=== PATIENT | female | born 1960 | race Caucasian/White ===

== ENCOUNTER 2016-08-31 07:26 | Emergency (ER) | payer OTHER ==
[2016-08-31 07:35] VITALS: BP 126/91
[2016-08-31] MEDS ORDERED: Lidocaine 2% 10 ML* VIAL INJ ONE (07:42)
[2016-08-31] MEDS ORDERED: Lidocaine 2% PF * 5 ML VIAL INJ ONE (08:06)
--- NOTE | 2016-08-31 08:06 | UC ---
Skin Complaint HPI - HPI Summary HPI Summary: wood sliver in left pinky under the nail x 1 day very painful - History of Current Complaint Chief Complaint: UCUpperExtremity Time Seen by Provider: 08/31/16 07:29 Stated Complaint: SLIVER RIGHT PINKY Hx Obtained From: Patient Onset/Duration: Sudden Onset, Lasting Days - 1, Still Present Timing: Constant Onset Severity: Moderate Current Severity: Moderate Location: Hand (Left) - left 5th finger , under the nail Character: Pain, Redness, Painful Aggravating: Touch Alleviating: Nothing Associated Signs & Symptoms: Positive: Tenderness - Allergy/Home Medications Allergies/Adverse Reactions: Allergies Allergy/AdvReac Type Severity Reaction Status Date / Time Sulfa Antibiotics Allergy Intermediate Hives Verified 08/31/16 07:35 Codeine Allergy Hives Verified 08/31/16 07:35 Home Medications: Home Medications NK [No Home Medications Reported] 08/31/16 [History Confirmed 08/31/16] Review of Systems Constitutional: Negative Skin: Negative Eyes: Negative ENT: Negative Respiratory: Negative All Other Systems Reviewed And Are Negative: Yes PMH/Surg Hx/FS Hx/Imm Hx Previously Healthy: Yes Cancer History Of: Denies: Breast Cancer - Surgical History Surgical History: Yes Surgery Procedure, Year, and Place: tubal, , R great toe joint replacement - Family History Known Family History: Positive: None Negative: Diabetes - Social History Alcohol Use: Rare Substance Use Type: None Smoking Status (MU): Former Smoker Type: Cigarettes Amount Used/How Often: 1/2 ppd Length of Time of Smoking/Using Tobacco: 05/2016 Have You Smoked in the Last Year: Yes Physical Exam Triage Information Reviewed: Yes Appearance: Well-Appearing, No Pain Distress, Well-Nourished Vital Signs: Initial Vital Signs Temp 97.5 F 08/31/16 07:29 Pulse 72 08/31/16 07:29 Resp 16 08/31/16 07:29 BP 126/91 08/31/16 07:29 Pulse Ox 99 08/31/16 07:29 Vital Signs Reviewed: Yes Eye Exam: Normal Eyes: Positive: Conjunctiva Clear ENT: Positive: Normal ENT inspection, Hearing grossly normal, Pharynx normal Neck exam: Normal Respiratory: Positive: Chest non-tender, Lungs clear, Normal breath sounds Cardiovascular: Positive: RRR, No Murmur, Pulses Normal Skin: Positive: Other - sliver under the nail of left pinky UC Physical Exam Vital Signs On Initial Exam: Initial Vitals Temp Pulse Resp BP Pulse Ox 97.5 F 72 16 126/91 99 08/31/16 07:29 08/31/16 07:29 08/31/16 07:29 08/31/16 07:29 08/31/16 07:29 Course/Dx - Diagnoses Provider Diagnoses: foreign body removal soft tissue Procedures - Procedure Summary Procedure Summary: foreign body / sliver removal under the left 5th finger nail anesthesia : 2 cc 2% lidocaine using 25 g needle sliver was removed using a splinter removal forceps Discharge - Discharge Plan Condition: Stable Disposition: HOME Patient Education Materials: Soft Tissue Foreign Body (ED) Additional Instructions: follow up if any sign of infection , having pain, redness, discharge
== END 2016-08-31 08:18 | disposition home or self-care (01) ==
LOC: UCCORT 07:26
DX: S60.457A Superficial foreign body of left little finger, initial encounter (principal); X58.XXXA Exposure to other specified factors, initial encounter; Y93.9 Activity, unspecified; Y92.9 Unspecified place or not applicable; Z88.5 Allergy status to narcotic agent; Z88.2 Allergy status to sulfonamides; Z87.891 Personal history of nicotine dependence
CPT/HCPCS: 99211; G0463; J2001

== ENCOUNTER 2018-01-30 07:27 | Emergency (ER) | payer BC, OTHER ==
--- OUTSIDE RECORDS SUMMARY | 2018-01-30 07:38 | XMS REPORT ---
:1960 External Reference #:[id number] Author Organization [facility] Address [address], [address] [place] [address] Phone [phone] Care Team Providers Name Role Phone Vinita Lomeli MD Care Team Information Adult Health Clinical Nurse Specialist Unavailable Vinita Lomeli MD Primary Care Physician Unavailable Payers Type Date Identification Numbers Payment Provider Subscriber Workers Compensation Onset: Policy Number: [facility] Insurance Leida Mendenhall 2017 [id number] Fund Group Number: [id number] [address] [address] Group Name: [place] [address] PayID: [id number] [facility] Policy Number: [id number] [facility] Leida Mendenhall PayID: [id number] [address] [place] [address] Problems Date Description Provider Status Onset: 07/15/2017 Closed fracture of ankle Tiffany Herrmann MD Active Onset: 07/15/2017 Current tear of lateral cartilage AND/OR Tiffany Herrmann MD Active meniscus of knee Onset: 07/15/2017 Activity, walking, marching and hiking Tiffany Herrmann MD Active Onset: 07/15/2017 Industrial trauma Tiffany Herrmann MD Active Onset: 07/15/2017 Other external cause status Tiffany Herrmann MD Active Onset: 07/22/2017 Unspecified dislocation of left patella, Tiffany Herrmann MD Active subs encntr Onset: 07/22/2017 Tear of articular cartilage of right Tiffany Herrmann MD Active knee, current, subs Onset: 07/22/2017 Unsp fx shaft of l fibula, 7thE Tiffany Herrmann MD Active Onset: 08/24/2017 Lateral dislocation of left patella, Mervat Flynn PA Active subsequent encounter Family History Date Family Member(s) Problem(s) Comments Father due to Heart Disease () Father due to Cancer () Social History Type Date Description Comments Lives With Alone Occupation [employer] 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 Cigarette Use Quit Cigars Never Smoked Cigars Pipe Never Smoked A Pipe Smokeless Tobacco Never Used Smokeless Tobacco ETOH Use Denies alcohol use Recreational Drug Use Denies Drug Use Daily Caffeine Current Caffeine User Daily Allergies, Adverse Reactions, Alerts Date Description Reaction Status Severity Comments 07/15/2017 Codeine Urticaria active 07/15/2017 Sulfa Antibiotics Urticaria active 07/15/2017 Shellfish-Derived Products active Medications Medication Date Status Form Strength Qnty SIG Indications Ordering Provider No Active Unknown Medications 2017 Flonase / Hx Suspension 50mcg/Act 1 spray Unknown Allergy Relief 0000 - each nare 2017 Tylenol 8 Hour / Hx Tablets ER 650mg one by Unknown 0000 - mouth 09/07/ 2017 hours as needed pain Ibuprofen / Hx Tablets 600mg 90tabs 1 tab by Unknown 0000 - mouth 2017 hours as needed Oxycodone-Acet / Hx Tablets 5-325mg take 1-2 Unknown aminophen 0000 - tablets 07/22/ by mouth 2017 every 4 to 6 hours if needed for pain maximu Vital Signs Date Vital Result Comment 01/11/2018 BP Systolic 120 mmHg BP Diastolic 87 mmHg Body Temperature 97.0 F Heart Rate 66 /min Height 67 inches 5'7" Weight 180.00 lb BMI (Body Mass Index) 28.2 kg/m2 BSA (Body Surface Area) 1.93 m2 [place] body weight in kilograms 61 O2 % BldC Oximetry 97 % Pain Level 0 11/23/2017 BP Systolic Sitting Right Arm 109 mmHg BP Diastolic Sitting Right Arm 75 mmHg Body Temperature 97.9 F Heart Rate 79 /min Respiratory Rate 16 /min Height 67 inches 5'7" Weight 177.00 lb BMI (Body Mass Index) 27.7 kg/m2 BSA (Body Surface Area) 1.92 m2 Stroud body weight in kilograms 61 O2 % BldC Oximetry 97 % 09/07/2017 BP Systolic 132 mmHg BP Diastolic 79 mmHg Body Temperature 97.8 F Heart Rate 76 /min Respiratory Rate 16 /min Height 67 inches 5'7" Weight 168.00 lb BMI (Body Mass Index) 26.3 kg/m2 BSA (Body Surface Area) 1.88 m2 Stroud body weight in kilograms 61 Pain Level 6 08/24/2017 BP Systolic Sitting Right Arm 111 mmHg BP Diastolic Sitting Right Arm 80 mmHg Body Temperature 98.7 F Heart Rate 88 /min Respiratory Rate 16 /min Height 67 inches 5'7" Weight 171.00 lb BMI (Body Mass Index) 26.8 kg/m2 BSA (Body Surface Area) 1.89 m2 [place] body weight in kilograms 61 08/03/2017 BP Systolic 145 mmHg BP Diastolic 91 mmHg Body Temperature 97.9 F Heart Rate 103 /min Respiratory Rate 17 /min Height 67 inches 5'7" Weight 170.00 lb BMI (Body Mass Index) 26.6 kg/m2 BSA (Body Surface Area) 1.89 m2 Stroud body weight in kilograms 61 Pain Level 0 07/22/2017 BP Systolic Sitting Left Arm 107 mmHg BP Diastolic Sitting Left Arm 78 mmHg Heart Rate 76 /min Respiratory Rate 16 /min Height 67 inches 5'7" Weight 172.12 lb BMI (Body Mass Index) 27.0 kg/m2 BSA (Body Surface Area) 1.90 m2 Stroud body weight in kilograms 61 O2 % BldC Oximetry 95 % Ra Pain Level 0 at rest 07/15/2017 BP Systolic Sitting Left Arm 109 mmHg BP Diastolic Sitting Left Arm 72 mmHg Body Temperature 98.7 F Heart Rate 69 /min Respiratory Rate 16 /min Height 67 inches 5'7" Weight 175.50 lb BMI (Body Mass Index) 27.5 kg/m2 BSA (Body Surface Area) 1.91 m2 Stroud body weight in kilograms 61 O2 % BldC Oximetry 97 % Ra Pain Level 6 Results Description No Information Procedures Date CPT Code Description Status 11/23/2017 13711 Radiology, Ankle Complete Completed 10/12/2017 38108 Radiology, Ankle Complete Completed 09/07/2017 86561 Radiology, Ankle Complete Completed 08/24/2017 77827 Radiology, Ankle Complete Completed 08/03/2017 72805 Radiology, Ankle Complete Completed 07/22/2017 75787 Radiology, Ankle Complete Completed 07/15/2017 96990 Fx distal tibia (ankle) w/wo ansth wskeletal Completed traction/manipulatio 07/15/2017 86054 Fx distal tibia (ankle) w/wo ansth wskeletal Completed traction/manipulatio 12/14/2007 08885 Radiology, Wrist Two Views Completed Encounters Type Date Location Provider CPT E/M Dx Office Visit 11/23/2017 10:30a [place] [address] S83.32xD S82.402E X58.xxxD Office Visit 10/12/2017 10:00a [place] [address] S83.31xD S82.402E X58.xxxD Office Visit 07/15/2017 3:00p [place] [address] S82.892A S83.204A W00.0xxA Y93.01 Y92.69 Y99.8 Office Visit 12/14/2007 11:15a Aden Vinson 36732 715.94 He Carl.O. H., DO 213.5 Plan of Care Future Appointment(s):02/24/2018 9:30 am - Tiffany Herrmann MD at [id number]/11/2018 - Tiffany Herrmann, MDS83.32xD Tear of articular cartilage of left knee, current, subsS82.402E Unsp fx shaft of l fibula, 9tpOD01.015D Lateral dislocation of left patella, subsequent encounterNew Therapy:Physical/ Occupational TherapyNew Therapy:Physical/Occupational TherapyReferral:Chente Lowery M.D., Surgery,Orthopedic
[2018-01-30 07:44] VITALS: BP 128/89
--- NOTE | 2018-01-30 08:31 | UC ---
Lower Extremity/Ankle HPI - HPI Summary HPI Summary: pt noted an ache behind her L knee 2 days ago. now the L calf feels painful and swollen. no acute injury, cp or sob. - History of Current Complaint Chief Complaint: UCLowerExtremity Stated Complaint: LEFT LEG PAIN Time Seen by Provider: 01/30/18 08:19 Hx Obtained From: Patient Onset/Duration: Gradual Onset Pain Intensity: 2 Aggravating Factor(s): Nothing Alleviating Factor(s): Nothing Able to Bear Weight: Yes - Risk Factors Gout Risk Factors: Negative Septic Arthritis Risk Factor: Negative - Allergies/Home Medications Allergies/Adverse Reactions: Allergies Allergy/AdvReac Type Severity Reaction Status Date / Time codeine Allergy Hives Verified 01/30/18 07:40 Sulfa (Sulfonamide Allergy Hives Verified 01/30/18 07:40 Antibiotics) PMH/Surg Hx/FS Hx/Imm Hx - Additional Past Medical History Additional PMH: Fx LLE(knee/ankle injuries) 6 months ago - Surgical History Surgical History: Yes Surgery Procedure, Year, and Place: tubal, , R great toe joint replacement - Family History Known Family History: Positive: None Negative: Diabetes - Social History Occupation: Employed Full-time Alcohol Use: Rare Substance Use Type: None Smoking Status (MU): Former Smoker Type: Cigarettes Amount Used/How Often: 1/2 ppd Length of Time of Smoking/Using Tobacco: 05/2016 Have You Smoked in the Last Year: Yes When Did the Patient Quit Smoking/Using Tobacco: 05/2016 - Immunization History Vaccination Up to Date: Yes Review of Systems Constitutional: Negative Skin: Negative Eyes: Negative ENT: Negative Respiratory: Negative Cardiovascular: Negative Gastrointestinal: Negative Genitourinary: Negative Motor: Negative Neurovascular: Negative Musculoskeletal: Calf Tenderness Neurological: Negative Psychological: Negative Is Patient Immunocompromised?: No All Other Systems Reviewed And Are Negative: Yes Physical Exam Triage Information Reviewed: Yes Appearance: Well-Appearing Vital Signs: Initial Vital Signs Temp 98.4 F 01/30/18 07:40 Pulse 69 01/30/18 07:40 Resp 15 01/30/18 07:40 BP 128/89 01/30/18 07:40 Pulse Ox 99 01/30/18 07:40 Vital Signs Reviewed: Yes Eyes: Positive: Conjunctiva Clear ENT: Positive: Normal ENT inspection Neck: Positive: Supple, Nontender, No Lymphadenopathy Respiratory: Positive: Lungs clear, Normal breath sounds Cardiovascular: Positive: RRR, No Murmur Abdomen Description: Positive: Nontender, No Organomegaly, Soft Bowel Sounds: Positive: Present Musculoskeletal: Positive: ROM Intact, Other: - LLE compared to R has subtle swelling plus popliteal fosa and calf are tender to palaption. LLE has full s/v/ m function. Neurological: Positive: Alert Psychological: Positive: Age Appropriate Behavior Skin Exam: Normal Diagnostics - Radiology No standard instances Radiology Interpretation Completed By: Radiologist - IMPRESSION: US LLE=1. NO LEFT LOWER EXTREMITY DEEP VEIN THROMBOSIS 2. PALACIOS'S CYST Lower Extremity Course/Dx - Course Course Of Treatment: NO CONCERN FOR INFECTION. NO DVT. +BAKERS CYST ON US - Differential Dx/Diagnosis Differential Diagnosis/HQI/PQRI: DVT, Phlebitis, Sprain, Strain Provider Diagnoses: PALACIOS CYST L KNEE Discharge - Sign-Out/Discharge Documenting (check all that apply): Patient Departure All imaging exams completed and their final reports reviewed: Yes - Discharge Plan Condition: Stable Disposition: HOME Patient Education Materials: Bakers Cyst (ED) Additional Instructions: FOLLOW UP WITH DR LUO, YOUR ORTHOPEDIST AT [facility] SOON POSSIBLE. USE YOUR CRUTCHES NEEDED FOR COMFORT - Billing Disposition and Condition Condition: STABLE Disposition: Home
--- NOTE | 2018-01-30 08:56 | RAD ---
HISTORY: pain/swelling LLE COMPARISONS: None relevant TECHNIQUE: Multiple transverse and longitudinal ultrasound images were obtained of the left lower extremity from the level of the common femoral vein inferiorly through to the infrapopliteal veins using grayscale, color Doppler, and spectral Doppler imaging with and without compression and with augmentation. Comparison images were obtained of the contralateral common femoral vein. FINDINGS: VEINS: The venous system of the left lower extremity is compressible throughout its course, with normal flow on color Doppler imaging and normal response to augmentation on spectral Doppler imaging. SOFT TISSUES: Unremarkable. OTHER FINDINGS: There is a 2.2 x 0.6 x 1.8 cm fluid collection of the popliteal fossa. IMPRESSION: 1. NO LEFT LOWER EXTREMITY DEEP VEIN THROMBOSIS 2. PALACIOS'S CYST
== END 2018-01-30 09:22 | disposition home or self-care (01) ==
LOC: UCCORT 07:27
DX: Z88.5 Allergy status to narcotic agent (principal); Z88.1 Allergy status to other antibiotic agents; M71.22 Synovial cyst of popliteal space [Baker], left knee
CPT/HCPCS: 99211; G0463

== ENCOUNTER 2018-07-27 11:18 | Emergency (ER) | payer BC ==
[2018-07-27 12:04] VITALS: BP 126/77
--- NOTE | 2018-07-27 12:17 | ED ---
Throat Pain/Nasal Congestion - HPI Summary HPI Summary: 57 yr old with 4-5 days of nasal congestion, sore throat, cough, and now right ear pain. She rates the pain as moderate. No change in swallowing. She has had some hoarseness. No fever. - History of Current Complaint Chief Complaint: UCEar Time Seen by Provider: 07/27/18 12:08 - Allergies/Home Medications Allergies/Adverse Reactions: Allergies Allergy/AdvReac Type Severity Reaction Status Date / Time codeine Allergy Hives Verified 07/27/18 12:00 Sulfa (Sulfonamide Allergy Hives Verified 07/27/18 12:00 Antibiotics) Home Medications: Home Medications Dm/P-Ephed/Acetaminoph/Doxylam [Cora-Goodell Plus Cold+Flu Pkt] 1 each PO Q4H PRN 07/27/18 [History Confirmed 07/27/18] PMH/Surg Hx/FS Hx/Imm Hx - Surgical History Surgery Procedure, Year, and Place: tubal, , R great toe joint replacement Infectious Disease History: No Infectious Disease History: Denies: Traveled Outside the [place] in Last 30 Days - Family History Known Family History: Positive: None Negative: Diabetes - Social History Alcohol Use: None Substance Use Type: Reports: None Smoking Status (MU): Former Smoker Type: Cigarettes Amount Used/How Often: 1/2 ppd Length of Time of Smoking/Using Tobacco: ~1/3 PPD x 30 Years Have You Smoked in the Last Year: Yes Review of Systems Positive: Fatigue Positive: Sore Throat, Ear Ache, Nasal Discharge All Other Systems Reviewed And Are Negative: Yes Physical Exam Triage Information Reviewed: Yes Vital Signs On Initial Exam: Initial Vitals Temp Pulse Resp BP Pulse Ox 98 F 76 16 126/77 99 07/27/18 11:58 07/27/18 11:58 07/27/18 11:58 07/27/18 11:58 07/27/18 11:58 Vital Signs Reviewed: Yes Appearance: Positive: Well-Appearing, No Pain Distress Skin: Positive: Warm, Skin Color Reflects Adequate Perfusion Head/Face: Positive: Normal Head/Face Inspection Eyes: Positive: EOMI ENT: Positive: Pharyngeal erythema, Nasal congestion, TM red - right TM with redness and effusion, Hoarse voice, Sinus tenderness. Negative: Muffled voice Neck: Positive: Nontender Respiratory/Lung Sounds: Positive: Clear to Auscultation, Breath Sounds Present Cardiovascular: Positive: RRR. Negative: Murmur Abdomen Description: Positive: Nontender Musculoskeletal: Positive: Strength/ROM Intact Neurological: Positive: Sensory/Motor Intact, Alert, Oriented to Person Place, Time, CN Intact II-III Psychiatric: Positive: Normal Diagnostics - Vital Signs Vital Signs Temp Pulse Resp BP Pulse Ox 07/27/18 11:58 98 F 76 16 126/77 99 - Laboratory Lab Statement: Any lab studies that have been ordered have been reviewed, and results considered in the medical decision making process. EENT Course/Dx - Course Course Of Treatment: 57 yr old with OM. Rx Biaxin - Diagnoses Provider Diagnoses: Otitis media Discharge - Sign-Out/Discharge Documenting (check all that apply): Patient Departure All imaging exams completed and their final reports reviewed: No Studies - Discharge Plan Condition: Good Disposition: HOME Prescriptions: Clarithromycin TAB* [Biaxin 500 MG TAB*] 500 mg PO BID #20 tab Patient Education Materials: Ear Infection (ED) Referrals: No Primary Care Phys,NOPCP [Primary Care Provider] - [facility] [place]] - 2 Days - Billing Disposition and Condition Condition: GOOD Disposition: Home
== END 2018-07-27 12:20 | disposition home or self-care (01) ==
LOC: UCCORT 11:18
DX: H66.91 Otitis media, unspecified, right ear (principal); R05 Cough; R09.89 Other specified symptoms and signs involving the circulatory and respiratory systems; J02.9 Acute pharyngitis, unspecified; Z87.891 Personal history of nicotine dependence; Z88.2 Allergy status to sulfonamides; Z88.5 Allergy status to narcotic agent
CPT/HCPCS: 99212; G0463

== ENCOUNTER 2019-04-10 08:43 | Emergency (ER) | payer BC ==
[2019-04-10 09:25] VITALS: BP 140/74
--- NOTE | 2019-04-10 09:37 | UC ---
Complaint Female HPI - HPI Summary HPI Summary: dysuria x 1 day urinary frequency , urgency lower back pain , hematuria denies any fever, no chills, no flank pain - History Of Current Complaint Chief Complaint: UCGU Stated Complaint: URINARY Time Seen by Provider: 04/10/19 09:15 Hx Obtained From: Patient ?: No Onset/Duration: Gradual Onset, Lasting Days - 1, Still Present Timing: Constant Severity Initially: Moderate Severity Currently: Moderate Pain Intensity: 7 Character: Burning Aggravating Factor(s): Urination Alleviating Factor(s): Nothing Associated Signs And Symptoms: Negative: Fever, Back Pain, Vaginal Bleeding/ Discharge, Vaginal Discharge, Nausea, Vomiting(# Of Episodes =), Genital Swelling, Genital Blisters, Retained Foregin Body (Specify) - Allergies/Home Medications Allergies/Adverse Reactions: Allergies Allergy/AdvReac Type Severity Reaction Status Date / Time codeine Allergy Hives Verified 04/10/19 09:12 Sulfa (Sulfonamide Allergy Hives Verified 04/10/19 09:12 Antibiotics) Home Medications: Home Medications Phenazopyridine TAB* [Pyridium 100 mg TAB*] 100 mg PO TID PRN 04/10/19 [History Confirmed 04/10/19] PMH/Surg Hx/FS Hx/Imm Hx Previously Healthy: Yes - Surgical History Surgical History: Yes Surgery Procedure, Year, and Place: tubal, , R great toe joint replacement - Family History Known Family History: Positive: None Negative: Diabetes - Social History Alcohol Use: Occasionally Substance Use Type: None Smoking Status (MU): Former Smoker Type: Cigarettes Amount Used/How Often: 1/2 ppd Length of Time of Smoking/Using Tobacco: ~1/3 PPD x 30 Years Have You Smoked in the Last Year: Yes When Did the Patient Quit Smoking/Using Tobacco: 2014 - Immunization History Vaccination Up to Date: Yes Review of Systems All Other Systems Reviewed And Are Negative: Yes Constitutional: Positive: Negative Skin: Positive: Negative Eyes: Positive: Negative ENT: Positive: Negative Cardiovascular: Positive: Negative Gastrointestinal: Positive: Negative Genitourinary: Positive: Dysuria, Hematuria, Frequency, Urgency Is Patient Immunocompromised?: No Physical Exam Triage Information Reviewed: Yes Appearance: Well-Appearing, No Pain Distress, Well-Nourished Vital Signs: Initial Vital Signs Temp 97.9 F 04/10/19 09:14 Pulse 60 04/10/19 09:14 Resp 14 04/10/19 09:14 BP 140/74 04/10/19 09:14 Pulse Ox 100 04/10/19 09:14 Vital Signs Reviewed: Yes Eye Exam: Normal Eyes: Positive: Conjunctiva Clear ENT: Positive: Normal ENT inspection, Hearing grossly normal, Pharynx normal Neck exam: Normal Neck: Positive: Supple Respiratory Exam: Normal Respiratory: Positive: Chest non-tender, Lungs clear, Normal breath sounds Cardiovascular: Positive: RRR, No Murmur, Pulses Normal Abdominal Exam: Normal Abdomen Description: Positive: Nontender, Soft. Negative: CVA Tenderness (R), CVA Tenderness (L), Distended, Guarding Bowel Sounds: Positive: Present Skin Exam: Normal Complaint Female Dx - Differential Dx/Diagnosis Provider Diagnosis: UTI (urinary tract infection) Discharge ED - Sign-Out/Discharge Documenting (check all that apply): Patient Departure All imaging exams completed and their final reports reviewed: No Studies - Discharge Plan Condition: Stable Disposition: HOME Prescriptions: Nitrofurantoin Monohyd/M-Cryst [Macrobid 100 mg Capsule] 100 mg PO BID #14 cap Patient Education Materials: Urinary Tract Infection in Women (DC) Referrals: No Primary Care Phys,NOPCP [Primary Care Provider] - If Needed - Billing Disposition and Condition Condition: STABLE Disposition: Home
== END 2019-04-10 09:40 | disposition home or self-care (01) ==
LOC: UCCORT 08:43
DX: N39.0 Urinary tract infection, site not specified (principal); R31.9 Hematuria, unspecified; Z88.5 Allergy status to narcotic agent; Z88.2 Allergy status to sulfonamides; Z87.891 Personal history of nicotine dependence
CPT/HCPCS: 81003; 87086; 99212; G0463